=== PATIENT | male | born 1985 | race Caucasian/White ===

== ENCOUNTER 2017-09-17 12:14 | Emergency (ER) | payer SELFPAY ==
[~2017-09-17] VITALS: Ht 182.9 cm; Wt 110.0 kg
[2017-09-17 12:16] VITALS: BP 141/91; PULSE 65; RESP 18; TEMP 97.6; O2SAT 98
[2017-09-17 13:21] VITALS: BP 140/94; PULSE 86; RESP 15; O2SAT 97
[2017-09-17] MEDS ORDERED: CEPH-460 PO (13:23)
--- NOTE | 2017-09-17 13:23 | PD ---
HPI Chief Complaint: Skin Problem Time Seen by Provider: 13:07 Travel History International Travel<30 days: No Contact w/Intl Traveler<30days: No Traveled to known affect area: No History of Present Illness HPI 31-year-old male complains of soft tissue mass on the posterior right thigh. Patient states that the mass has been there for a few months. Patient states that his grandmother dry to cut onto the mass with the razor blade last night. Patient denies any other problem. Patient states that the mass is not painful. PFSH Past Medical History Medical History: Denies Significant Hx Tetanus Vaccination: < 5 Years Influenza Vaccination: No Past Surgical History Surgical History: No Previous Surgery Social History Alcohol Use: No Tobacco Use: No Substance Use: Yes (THC) Allergies-Medications (Allergen,Severity, Reaction): Coded Allergies: No Known Allergies (Unverified , 09/17/17) Reported Meds & Prescriptions Reported Meds & Active Scripts Active No Active Prescriptions or Reported Medications Review of Systems General / Constitutional: No: Fever Eyes: No: Visual changes HENT: No: Headaches Cardiovascular: No: Chest Pain or Discomfort Respiratory: No: Shortness of Breath Gastrointestinal: No: Abdominal Pain Genitourinary: No: Dysuria Musculoskeletal: No: Pain Skin: No Rash Neurologic: No: Weakness Psychiatric: No: Depression Endocrine: No: Polydipsia Hematologic/Lymphatic: No: Easy Bruising Physical Exam Narrative GENERAL: Well-nourished, well-developed patient. SKIN: Focused skin assessment warm/dry. HEAD: Normocephalic. EYES: No scleral icterus. No injection or drainage. NECK: Supple, trachea midline. No JVD or lymphadenopathy. CARDIOVASCULAR: Regular rate and rhythm without murmurs, gallops, or rubs. RESPIRATORY: Breath sounds equal bilaterally. No accessory muscle use. GASTROINTESTINAL: Abdomen soft, non-tender, nondistended. MUSCULOSKELETAL: No cyanosis, or edema. BACK: Nontender without obvious deformity. No CVA tenderness. Patient has a small soft tissue mass cystic structure on the right thigh posterior lateral aspect of the thigh. No tenderness no redness noted. Small superficial skin laceration noted over the soft mass. No redness no heat no discharge noted. Data Data Last Documented VS Vital Signs Date Time Temp Pulse Resp B/P (MAP) Pulse Ox O2 Delivery O2 Flow Rate FiO2 12/3/17 12:16 97.6 65 18 141/91 (707) [phone] [facility] Medical Decision Making Medical Screen Exam Complete: Yes Emergency Medical Condition: Yes Differential Diagnosis Differential diagnosis including cyst, lipoma. Narrative Course 31-year-old male was soft tissue mass right thigh. Attempts at home to cut the mass open last night. Diagnosis Primary Impression: Dermoid cyst of right lower extremity Patient Instructions: General Instructions Additional Instructions: Wound care daily. Keflex as directed. Follow-up with general surgeon for cyst removal. Med/Other Pt SpecificInfo: Prescription(s) given Scripts Cephalexin (Keflex) 500 Mg Capsule 500 MG PO TID for Infection, #15 CAP 0 Refills Prov: Bobo Stanley MD 09/17/17 Disposition: 01 DISCHARGE HOME Condition: Stable Bobo Stanley MD Sep 17, 2017 13:23
== END 2017-09-17 13:56 | disposition home or self-care (01) ==
LOC: NEPD 12:14
DX: D36.7 Benign neoplasm of other specified sites (principal)
CPT/HCPCS: 99283